=== PATIENT | female | born 1970 | race Caucasian/White ===

== ENCOUNTER 2017-07-07 01:56 | Observation (INO) ==
[2017-07-07 02:39] LABS: Basophils # 0.1 K/mcL (0.0-0.2); Basophils % 0.8 %; Eosinophils # 0.4 K/mcL (0.0-0.6); Hematocrit 40.3 % (35.3-44.9); Hemoglobin 12.4 g/dL (11.5-15.4); Immature Granulocytes % 0.6 % (0-4); Lymphocytes # 3.2 K/mcL (0.6-4.6); Lymphocytes % 35.6 %; Mean Corpuscular HGB Conc 30.8 g/dL (31.6-35.5); Mean Corpuscular Volume 81.3 fL (83.0-100.0); Mean Platelet Volume 10.1 fL (9.4-12.4); Monocytes # 0.5 K/mcL (0.0-1.3); Monocytes % 5.9 %; Neutrophils # 4.7 K/mcL (1.6-8.9); Platelet Count 185 K/mcL (140-400); Red Blood Count 4.96 M/mcL (3.82-4.97); Red Cell Distribution Width 14.5 % (11.5-14.5); Segmented Neutrophils % 53.1 %
[2017-07-07 02:40] LABS: Bilirubin,Urine Negative (Negative); Blood,Urine Negative (Negative); Clarity,Urine Cloudy (Clear); Color,Urine Yellow (Yellow); Glucose,Urine (UA) Normal (Normal); Ketones,Urine Negative (Negative); Leukocyte Esterase,Urine Moderate (Negative); Nitrite,Urine Negative (Negative); Protein,Urine Trace mg/dL (Neg-Trace); Specific Gravity,Urine 1.025 (1.010-1.025); Urobilinogen,Urine Normal (Normal)
[2017-07-07 02:43] LABS: Bacteria,Urine Few per hpf (None-Few); Hyaline Casts,Urine None Seen per lpf (None-Few)
[2017-07-07 02:44] LABS: INR 1.1; Prothrombin Time 11.3 Seconds (9.4-12.1)
[2017-07-07 02:45] LABS: Amphetamine Screen,Urine Negative ng/mL (Cutoff=1000); Barbiturate Screen,Urine Negative ng/mL (Cutoff=200); Benzodiazepines Screen,Urine Negative ng/mL (Cutoff=200); Cannabinoid Screen,Urine Negative ng/mL (Cutoff = 50); Cocaine Screen,Urine Negative ng/mL (Cutoff= 300); Opiate Screen,Urine Negative ng/mL (Cutoff=300); Phencyclidine Screen,Urine Negative ng/mL (Cutoff=25)
[2017-07-07 02:47] LABS: Activated Partial Thrombo Time 30.4 Seconds (26.0-36.0)
[2017-07-07] MEDS ORDERED: Aspirin 81 MG TAB.CHEW PO ONE (02:52)
--- NOTE | 2017-07-07 02:52 | Emergency Department Note ---
Disposition Clinical Impression: Chest pain Qualifiers: Chest pain type: unspecified Qualified Code(s): R07.9 - Chest pain, unspecified Disposition: Admitted As Inpatient General Adult HPI - General Chief complaint: ED Chest Pain Stated complaint: chest pain, high bp Time Seen by Provider: 07/07/17 02:14 Source: patient Mode of arrival: ambulatory Limitations: no limitations Nursing Notes Reviewed: Yes Vital Signs Reviewed: Yes - History of Present Illness HPI Narrative: 46-year-old patient with a significant history of hypertension reports to the emergency room with chest pain that has been going on all day since she classifies as an ache that has been intermittent and is unrelieved with antacids. The chest pain initiated yesterday afternoon, was intermittent and she does sound as part of her acid reflux and was taking antacids however around 8:30 last night patient had taken her medicine and was going up the stairs for bed and she felt like her heart was pounding, so she checked her blood pressures and I have over while the blood pressures were 159/99 176/106 and 194/-. A little bit later she had a very strong headache and she felt her heart stop to flip flop, she became concerned so she came to the emergency room. She has a large familial history of sudden MIs before the age of 50, and she actually has an appointment with [facility] electrophysiology next week due to the large familial history Onset (ago): hour(s) Location: chest Radiation: non-radiation Pain Scale: 0 Consistency: constant, intermittent Improves with: nothing Worsens with: nothing Associated symptoms: Reports: chest pain. Denies: confusion, cough, diaphoresis , fever/chills, headaches, loss of appetite, nausea/vomiting, rash, seizure, shortness of breath, syncope, weakness, other - Related Data Home Medications Medication Instructions Recorded Confirmed Albuterol Sulfate [Proair Hfa] 2 puff IH PRN PRN 07/07/17 07/07/17 Amitriptyline [Elavil] 50 mg PO DAILY 07/07/17 07/07/17 Budesonide [Pulmicort Flexhaler 1 puff IH PRN PRN 07/07/17 07/07/17 90mcg] Buspirone HCl [Buspar] 5 mg PO TID 07/07/17 07/07/17 Dicyclomine [Bentyl] 20 mg PO PRN PRN 07/07/17 07/07/17 Doxycycline Hyclate [Morgidox] 100 mg PO DAILY 07/07/17 07/07/17 Famotidine [Heartburn Prevention] 20 mg PO DAILY 07/07/17 Lisinopril [Zestril] 20 mg PO DAILY 07/07/17 07/07/17 Meloxicam 15 mg PO DAILY 07/07/17 07/07/17 Metoprolol Tartrate [Lopressor] 75 mg PO BID 07/07/17 07/07/17 Omeprazole [PriLOSEC] 40 mg PO DAILY 07/07/17 07/07/17 Pentosan Polysulfate Sodium 100 mg PO BID 07/07/17 07/07/17 [Elmiron] Tizanidine HCl [Zanaflex] 4 mg PO PRN PRN 07/07/17 07/07/17 Trospium Chloride 20 mg PO BID 07/07/17 07/07/17 Allergies Allergy/AdvReac Type Severity Reaction Status Date / Time adhesive Allergy Rash Verified 09/23/16 15:03 Sulfa (Sulfonamide Allergy Hives Verified 09/23/16 15:03 Antibiotics) All systems ED: reviewed and negative except as stated. Review of Systems: As Per HPI Constitutional: Reports: as per HPI. Denies: fever, chills Cardiovascular: Reports: as per HPI, chest pain, palpitations, dyspnea on exertion, edema, paroxysmal nocturnal dyspnea. Denies: syncope Respiratory: Reports: as per HPI. Denies: cough, dyspnea, wheezes, hemoptysis Gastrointestinal: Denies: abdominal pain, nausea, vomiting, diarrhea Musculoskeletal: Denies: back pain, neck pain Neurological: Denies: headache, weakness, numbness, paresthesias Past Medical History - Past Medical History Medical history: Reports: asthma, GERD, migraine, renal disease, other Psychiatric history: Reports: anxiety, depression - Social History Smoking Status: Never smoker Smokeless Tobacco Status: No Alcohol use: Reports: none Drug use: Reports: none Physical Exam - General Limitations: no limitations General appearance: alert - Head Head exam: atraumatic, normocephalic, normal inspection - Eye Eye exam: Present: normal appearance, PERRL, EOMI - ENT ENT exam: normal exam, normal oropharynx, mucous membranes moist - Neck Neck exam: Present: normal inspection, full ROM, trachea midline - Chest Chest inspection: Present: normal inspection, symmetric chest wall rise - Respiratory Respiratory exam: Present: normal lung sounds bilaterally - Cardiovascular Cardiovascular exam: Present: regular rate, normal rhythm, normal heart sounds - Abdominal Exam Abdominal exam: Present: soft, Non-Tender, normal bowel sounds. Absent: tenderness, distention, guarding, rebound, rigidity - Extremities Exam Extremities exam: Present: normal inspection, full ROM. Absent: tenderness, pedal edema - Expanded Lower Extremity Exam Gait: observed and normal - Back Exam Back exam: Present: normal inspection, full ROM. Absent: tenderness, CVA tenderness (R), CVA tenderness (L) - Neurological Exam Neurological exam: Present: alert, oriented X3, normal gait - Psychiatric Psychiatric exam: Present: normal affect, normal mood - Skin Skin exam: Present: warm, dry, intact, normal color Course Course Narrative: 46-year-old patient with a significant history of hypertension reports to the emergency room with chest pain that has been going on all day since she classifies as an ache that has been intermittent and is unrelieved with antacids. The chest pain initiated yesterday afternoon, was intermittent and she does sound as part of her acid reflux and was taking antacids however around 8:30 last night patient had taken her medicine and was going up the stairs for bed and she felt like her heart was pounding, so she checked her blood pressures and I have over while the blood pressures were 159/99 176/106 and 194/-. A little bit later she had a very strong headache and she felt her heart stop to flip flop, she became concerned so she came to the emergency room. She has a large familial history of sudden MIs before the age of 50, and she actually has an appointment with [facility] electrophysiology next week due to the large familial history Patient sitting in room in no acute distress. Exam is benign with the exception of elevated blood pressure. EKG showed sinus rhythm without ST elevation or significant ST depression., EKG was signed off by attending Dr. Hall. We will start the chest pain workup for rule out of ACS given patient' s familial history, personal history of hypertension, and symptomology. - Reevaluation(s) Reevaluation #1: Labs returned with urine showing a UTI, and a troponin of 0.05. At this point it would be prudent to go ahead and admit the patient for an ACS rule out. Hospitalist paged a return call except patient to the medical floor. Patient is agreeable with the plan. She has remained stable and very pleasant. Her blood pressures have remained elevated however she is not in hypertensive emergency at this time there is no in organ damage. Spoke with the hospitalist fevers drop in her blood pressure to fast creating more illness they will it could potentially help her. We will admit to Hospital services for ACS rule out. Time: 03:15 Vital Signs Temperature 98.7 F 07/07/17 01:59 Pulse Rate 91 07/07/17 01:59 Respiratory Rate 19 07/07/17 01:59 Blood Pressure 182/133 07/07/17 01:59 O2 Sat by Pulse Oximetry 98 07/07/17 01:59 Temperature 97.9 F 07/07/17 04:30 Pulse Rate 95 07/07/17 04:30 Respiratory Rate 16 07/07/17 04:30 Blood Pressure 153/93 07/07/17 04:30 O2 Sat by Pulse Oximetry 96 07/07/17 04:30 Oxygen Delivery Oxygen Delivery Room Air Medical Decision Making - Medical Records Medical records reviewed: Yes I reviewed the patient's medical records. - Lab Data Lab results reviewed: Yes I reviewed the patient's lab results. Result diagrams: 07/07/17 02:25 07/07/17 02:25 Lab Results 07/07/17 07/07/17 07/07/17 Range/Units 02:25 02:25 02:25 WBC 8.9 (4.3-11.1) K/mcL RBC 4.96 (3.82-4.97) M/mcL Hgb 12.4 (11.5-15.4) g/dL Hct 40.3 (35.3-44.9) % MCV 81.3 L (83.0-100.0) fL MCH 25.0 L (28.0-33.3) pg MCHC 30.8 L (31.6-35.5) g/dL RDW 14.5 (11.5-14.5) % Plt Count 185 (140-400) K/mcL MPV 10.1 (9.4-12.4) fL Immature Gran % 0.6 (0-4) % Seg Neutrophils % 53.1 % Lymphocytes % 35.6 % Monocytes % 5.9 % Eosinophils % 4.0 % Basophils % 0.8 % Neutrophils # 4.7 (1.6-8.9) K/mcL Lymphocytes # 3.2 (0.6-4.6) K/mcL Monocytes # 0.5 (0.0-1.3) K/mcL Eosinophils # 0.4 (0.0-0.6) K/mcL Basophils # 0.1 (0.0-0.2) K/mcL PT 11.3 (9.4-12.1) Seconds INR 1.1 APTT 30.4 (26.0-36.0) Seconds Sodium (136-145) mEq/L Potassium (3.5-5.1) mEq/L Chloride (98-107) mEq/L Carbon Dioxide (23-29) mEq/L BUN (6-20) mg/dL Creatinine (0.60-1.20) mg/dL Est GFR ( Amer) (> 60) Est GFR (Non-Af Amer) (> 60) BUN/Creatinine Ratio (6-26) Glucose (70-105) mg/dL Calculated Osmolality (280-300) Calcium (8.6-10.3) mg/dL Troponin I (< 0.04) ng/mL Lipase (11-82) Units/L Urine Color (Yellow) Urine Clarity (Clear) Urine pH (5.0-8.0) pH Units Ur Specific [place] (1.010-1.025) Urine Protein (Neg-Trace) mg/dL Urine Glucose (UA) (Normal) mg/dL Urine Ketones (Negative) mg/dL Urine Blood (Negative) Urine Nitrite (Negative) Urine Bilirubin (Negative) Urine Urobilinogen (Normal) mg/dL Ur Leukocyte Esterase (Negative) Urine Microscopic RBC (0-3) per hpf Urine Microscopic WBC (0-3) per hpf Ur Squamous Epith Cells (None-Few) per lpf Urine Bacteria (None-Few) per hpf Hyaline Casts (None-Few) per lpf Ur Culture Indicated? (NO) Urine Opiates Screen Negative (Ijxsns=735) ng/mL Ur Barbiturates Screen Negative (Zonkhs=972) ng/mL Ur Phencyclidine Scrn Negative (Cutoff=25) ng/mL Ur Amphetamines Screen Negative (Qtclbt=5360) ng/mL U Benzodiazepines Scrn Negative (Eyzjdc=696) ng/mL Urine Cocaine Screen Negative (Cutoff= 300) ng/mL U Marijuana (THC) Screen Negative (Cutoff = 50) ng/mL 07/07/17 07/07/17 07/07/17 Range/Units 02:25 02:25 02:31 WBC (4.3-11.1) K/mcL RBC (3.82-4.97) M/mcL Hgb (11.5-15.4) g/dL Hct (35.3-44.9) % MCV (83.0-100.0) fL MCH (28.0-33.3) pg MCHC (31.6-35.5) g/dL RDW (11.5-14.5) % Plt Count (140-400) K/mcL MPV (9.4-12.4) fL Immature Gran % (0-4) % Seg Neutrophils % % Lymphocytes % % Monocytes % % Eosinophils % % Basophils % % Neutrophils # (1.6-8.9) K/mcL Lymphocytes # (0.6-4.6) K/mcL Monocytes # (0.0-1.3) K/mcL Eosinophils # (0.0-0.6) K/mcL Basophils # (0.0-0.2) K/mcL PT (9.4-12.1) Seconds INR APTT (26.0-36.0) Seconds Sodium 140 (136-145) mEq/L Potassium 3.7 (3.5-5.1) mEq/L Chloride 108 H (98-107) mEq/L Carbon Dioxide 25 (23-29) mEq/L BUN 18 (6-20) mg/dL Creatinine 0.73 (0.60-1.20) mg/dL Est GFR ( Amer) > 60 (> 60) Est GFR (Non-Af Amer) > 60 (> 60) BUN/Creatinine Ratio 25 (6-26) Glucose 129 H (70-105) mg/dL Calculated Osmolality 294 (280-300) Calcium 9.5 (8.6-10.3) mg/dL Troponin I 0.05 H* (< 0.04) ng/mL Lipase 22 (11-82) Units/L Urine Color Yellow (Yellow) Urine Clarity Cloudy A (Clear) Urine pH 6.0 (5.0-8.0) pH Units Ur Specific [place] 1.025 (1.010-1.025) Urine Protein Trace (Neg-Trace) mg/dL Urine Glucose (UA) Normal (Normal) mg/dL Urine Ketones Negative (Negative) mg/dL Urine Blood Negative (Negative) Urine Nitrite Negative (Negative) Urine Bilirubin Negative (Negative) Urine Urobilinogen Normal (Normal) mg/dL Ur Leukocyte Esterase Moderate H (Negative) Urine Microscopic RBC 0-3 (0-3) per hpf Urine Microscopic WBC 50-100 H (0-3) per hpf Ur Squamous Epith Cells Moderate H (None-Few) per lpf Urine Bacteria Few (None-Few) per hpf Hyaline Casts None Seen (None-Few) per lpf Ur Culture Indicated? YES A (NO) Urine Opiates Screen (Fdqjno=096) ng/mL Ur Barbiturates Screen (Fjeypu=705) ng/mL Ur Phencyclidine Scrn (Cutoff=25) ng/mL Ur Amphetamines Screen (Hawisx=3093) ng/mL U Benzodiazepines Scrn (Uvbhxl=276) ng/mL Urine Cocaine Screen (Cutoff= 300) ng/mL U Marijuana (THC) Screen (Cutoff = 50) ng/mL - Radiology Data Radiology results reviewed: Yes I reviewed the patient's radiology results. Attestation Statement - Attestation Attestation: I, Josiah Hall DO have provided [id number] time during the care of this patient. Detailed review the presentation, symptoms, medical history were discussed and reviewed with the mid-level provider Stacey Starks PA-C/HUMIDIFIER OPERATOR. Medical intervention labs and imaging studies were reviewed in detail. See full documentation of physical exam and course of care in the mid-level provider 's note. I agree with the determined course of care, medical intervention and disposition put forth by the mid-level provider. See below documentation for changes or alterations in documentation. 46-year-old female presents emergency room with intermittent chest discomfort and pain over the last several weeks. Patient has no specific cardiac history but has had several family members at a young age secondary to cardiac disease. Patient denies any symptoms at this time. Aspirin was given. Patient took a full 325 mg of aspirin. Currently she is denying chest pain shortness of breath headache vision changes nausea vomiting or diarrhea. Patient denies any fevers or chills, infection, recent illness. Denies any trauma or injury. Physical exam she is resting comfortably in bed. Lungs are clear heart is regular abdomen is soft. She does not have any acute neurologic deficits or issues at this point. She is able to distress. Patient had screening evaluation CBC chemistry and troponin here in the emergency room. Her troponin was slightly elevated at 0.05. Chest x-ray is stable. Patient was recommended for admission secondary to risk factors including hypertension, hyperlipidemia, diabetes. Patient also had elevated troponin. Clinically she does not require any further intervention at this point considering she has stable vital signs and no pain. Hospitalist will admit for definitive management. See detailed documentation of the physical exam, medical intervention, medical decision-making and disposition in the mid-level provider' s note. No critical care provider this patient's treatment course 0400 Patient is stable here in emergency room. Hospitalist was down to the emergency room to evaluate her. No clinical changes at this time. Admission process will be completed at this point for definitive management.
[2017-07-07 02:54] LABS: BUN/Creatinine Ratio 25 (6-26); Blood Urea Nitrogen 18 mg/dL (6-20); Calcium 9.5 mg/dL (8.6-10.3); Carbon Dioxide 25 mEq/L (23-29); Chloride 108 mEq/L (98-107); Glucose 129 mg/dL (70-105); Lipase 22 Units/L (11-82); Osmolality,Calculated 294 (280-300); Potassium 3.7 mEq/L (3.5-5.1); Sodium 140 mEq/L (136-145); eGFR For African Americans > 60 (> 60); eGFR For Non-African Americans > 60 (> 60)
[2017-07-07 02:57] LABS: RBC,Urine 0-3 per hpf (0-3); Squamous Epithelial Cell,Urine Moderate per lpf (None-Few); WBC,Urine 50-100 per hpf (0-3)
[2017-07-07] MEDS ORDERED: *HR* Enoxaparin 100 MG/ML SYRINGE SQ STA (04:55)
[2017-07-07] MEDS ORDERED: traMADol 50 MG TABLET PO PRN (04:55)
[2017-07-07] MEDS ORDERED: *HR* OxyCODONE Immed Rel 5 MG TABLET PO PRN (04:55)
[2017-07-07] MEDS ORDERED: Acetaminophen 325 MG TABLET PO PRN (04:55)
[2017-07-07] MEDS ORDERED: Naloxone 0.4 MG/ML INJ IVP PRN (04:55)
--- NOTE | 2017-07-07 05:32 | Internal Med History&Physical ---
Date of Encounter: 07/07/17 Time of Encounter: 05:00 Assessment and Plan (1) Chest pain Current visit: Yes Status: Acute 1. Will cycle troponins, EKG's, and order ECHO. 2. Will place on PPI given her GERD symptoms. 3. Consult cardiology given her + troponins, recent negative stress test in September , and likely need for further cardiac work-up. Qualifiers: Chest pain type: precordial pain Qualified Code(s): R07.2 - Precordial pain (2) Elevated troponin I level Current visit: Yes Status: Acute 1. Patient currently chest pain free. 2. She received ASA in ER. 3. I will order a one time dose of Lovenonx at 1 mg/kg this morning. 4. Cycle troponins and EKG's. 5. Consult cardiology. 6. She may need further Lovenox or heparin drip pending repeat troponins. (3) GERD (gastroesophageal reflux disease) Current visit: Yes Status: Acute 1. Will place on BID PPI. 2. She may need EGD as outpatient once cardiac status evaluated. Qualifiers: Esophagitis presence: without esophagitis Qualified Code(s): K21.9 - Gastro -esophageal reflux disease without esophagitis (4) DVT prophylaxis Current visit: Yes Status: Acute 1. Lovenox at 1 mg/kg x one dose this morning. Further dosing pending cardiac work-up. 2. She may need continued anti-coagulation versus DVT prophylaxis. Internal Medicine - H&P: HPI Chief complaint: chest pain Admitted From: Emergency Dept Plans for Post Hospital Care: Home History of present illness: Ms. White is a 46 year old female who presents with sudden onset of chest pain , pressure, shortness breath, and diaphoresis overnight. Her symptoms awoke her from sleep tonight, and she therefore presented to the ER for further workup and care. She did have periods of chest pain off and on yesterday most of day, which she attributed to acid reflux. She took several antacids over-the -counter without relief. She therefore went to bed, hoping her symptoms would go away. However, she awoke with chest pain which was much worse than earlier in the day. She therefore came to the ER. Workup in the ER was negative except for positive troponin of 0.05. She was therefore admitted to the hospitalist service. Upon my assessment of the patient, she is currently chest pain-free. She explains that she has a strong family history of sudden due to cardiac dysrhythmias. She is due to see an farm crops teacher at [facility] next week in consultation and will likely have elective physiologic study in the near future. Patient did have a stress echocardiogram here at [place] less than a year ago which was negative. Past Med Surg Social Fam HX - Past Medical History Attestation: Yes The following information was validated with the patient. Source: patient, old records reviewed Medical history: asthma, GERD, migraine, renal disease Psychiatric history: anxiety, depression - Past Surgical History Surgical History: , MACK/BSO - Social History Smoking Status: Never smoker Smokeless Tobacco Status: No Alcohol use: none Drug use: none Current living situation: Home, With Family Activity Level: Independent ambulation Recent Out of Country Travel Within the Last 8 Weeks: No - Family History Mother Hx Family Cardiac Disorders: Yes (Pacemaker) Hx Family Cancer: Yes (Liver) Father Living Status: Cause of : Pancreatic cancer Hx Family Cardiac Disorders: Yes (HTN) Hx Family Cancer: Yes (Pancreatic) Sister Hx Family Cardiac Disorders: Yes (heart failure) Internal Medicine - H&P: Meds Albuterol Sulfate [Proair Hfa] 2 puff IH PRN PRN 07/07/17 [History] Amitriptyline [Elavil] 50 mg PO DAILY 07/07/17 [History] Budesonide [Pulmicort Flexhaler 90mcg] 1 puff IH PRN PRN 07/07/17 [History] Buspirone HCl [Buspar] 5 mg PO TID 07/07/17 [History] Dicyclomine [Bentyl] 20 mg PO PRN PRN 07/07/17 [History] Doxycycline Hyclate [Morgidox] 100 mg PO DAILY 07/07/17 [History] Famotidine [Heartburn Prevention] 20 mg PO DAILY 07/07/17 [History] Lisinopril [Zestril] 20 mg PO DAILY 07/07/17 [History] Meloxicam 15 mg PO DAILY 07/07/17 [History] Metoprolol Tartrate [Lopressor] 75 mg PO BID 07/07/17 [History] Omeprazole [PriLOSEC] 40 mg PO DAILY 07/07/17 [History] Pentosan Polysulfate Sodium [Elmiron] 100 mg PO BID 07/07/17 [History] Tizanidine HCl [Zanaflex] 4 mg PO PRN PRN 07/07/17 [History] Trospium Chloride 20 mg PO BID 07/07/17 [History] 3 Allergy/AdvReac Type Severity Reaction Status Date / Time adhesive Allergy Rash Verified 09/23/16 15:03 Sulfa (Sulfonamide Allergy Hives Verified 09/23/16 15:03 Antibiotics) - Constitutional Constitutional: no chills, no fever(s), no night sweats - EENT Eyes: no blurry vision, no change in vision Ears: no ear pain, no tinnitus Nose, mouth and throat: no nasal congestion, no nasal discharge, no sinus pressure, no sore throat - Cardiovascular Cardiovascular ROS IM: chest pain, diaphoresis, dyspnea, dyspnea on exertion, palpitations, no edema, no lightheadedness, no paroxysmal nocturnal dyspnea, no syncope - Respiratory Respiratory: no cough, no hemoptysis, no chest congestion, no excessive phlegm production, no change in phlegm color - Gastrointestinal Gastrointestinal: dyspepsia, heartburn, no abdominal pain, no diarrhea, no hematemesis, no hematochezia, no melena, no nausea, no vomiting - Genitourinary Genitourinary: no dysuria, no flank pain, no hematuria - Musculoskeletal Musculoskeletal ROS IM: no arthralgias, no back pain, no limited range of motion - Integumentary Integumentary IM: no rash, no jaundice - Neurological Neurological ROS: headache(s) (migraine), no disequilibrium, no dizziness, no focal weakness, no frequent falls - Psychiatric Psychiatric: no anxiety, no depression - Endocrine Endocrine IM: no polydipsia, no polyuria - Hematologic/Lymphatic Hematologic/Lymphatic: no easy bruising, no lymphadenopathy - Allergic/Immunologic Allergic/Immunologic: no wheezing, no GI upset with certain foods - Constitutional Vitals: Temp Pulse Resp BP Pulse Ox 97.9 F 95 16 153/93 96 07/07/17 04:30 07/07/17 04:30 07/07/17 04:30 07/07/17 04:30 07/07/17 04:30 General appearance: Present: cooperative, A&O X 3, pleasant, no acute distress - Head Head exam: Absent: atraumatic, normal inspection - Eye Eye exam: Present: EOMI, PERRL. Absent: scleral icterus Pupils: Present: normal accommodation - ENT ENT exam: Present: mucous membranes dry, normal exam, normal oropharynx - Neck Neck exam general surgery: Present: full ROM, supple. Absent: lymphadenopathy, tenderness, nuchal rigidity - Respiratory Respiratory exam: Present: CTAB. Absent: chest wall tenderness, rales, respiratory distress, rhonchi, wheezes - Cardiovascular Cardiovascular exam: Present: distant heart sounds, RRR, +S1, +S2. Absent: diastolic murmur, systolic murmur - GI/Abdominal GI/Abdominal exam: Present: soft. Absent: hernia, hepatomegaly, mass, splenomegaly - Extremities Exam Extremities exam: Present: full ROM, normal capillary refill, warm, radial pulses palpable and symmetrical. Absent: calf tenderness, joint swelling, pedal edema, tenderness - Back Exam Back exam: Absent: CVA tenderness (L), CVA tenderness (R) - Neurological Exam Neurological exam: Present: alert, CN II-XII intact, oriented X3, no focal deficits, strengths equal and symetr throughout - Psychiatric Psychiatric exam: Present: normal affect, normal mood - Skin Skin exam: Present: dry, warm. Absent: rash Internal Med - H&P Results - Labs CBC & Chem 7: 07/07/17 02:25 07/07/17 02:25 - EKG Data -: EKG Interpreted by Myself - EKG Data Prior EKG available for review: no EKG comments: 07/07/17 05:39 NSR; LAD; ? LAE - Diagnostic Studies Chest x-ray Status: image reviewed by me (negative)
[2017-07-07] MEDS: Pantoprazole 40 MG VIAL IVP SCH ×2 (05:36→18:24)
--- NOTE | 2017-07-07 09:30 | Cardiology Consult Note ---
<Carl Lane - Last Filed: 07/07/17 09:17> Date of Encounter: 07/07/17 Time of Encounter: 09:17 Assessment and Plan (1) Chest pain Current Visit: Yes Status: Acute C/o typical and atypical chest pain symptoms. EKG shows Sr with no ST changes. Troponin mildly elevated at 0.05, 0.04 likely demand ischemia from elevated b/p 180/100. Stress echo 06/2016 was negative. EF 60-65%. Chest pain may be related to uncontrolled b/p. Continues to have pain on my exam and b/p is improved. Cardiac risk factors. include HTN, HLD, and borderline DM. Also reports family history with multiple uncles in their 50"s. I discussed possible LHC vs continuing medical management. I will discuss further with Dr. Miner. Qualifiers: Chest pain type: precordial pain Qualified Code(s): R07.2 - Precordial pain (2) Elevated troponin I level Current Visit: Yes Status: Acute Troponin 0.05, 0.04, likely demand ischemia in the setting of uncontrolled hypertension. (3) Hypertension Current Visit: Yes Status: Acute B/p difficult to control at home per patient. Labile b/p. Reports dietary indescretions.Low sodium diet discussed. Restart home meds and adjust as needed. Qualifiers: Hypertension type: essential hypertension Qualified Code(s): I10 - Essential (primary) hypertension Discussion w patient/family: The assessment and plan as outlined above was discussed with the patient and/or family members who expressed understanding and agreement. All questions were answered. Thank you for involving us in the care of your patient. Please call with any questions. History of Present Illness Consult date: 07/07/17 Requesting physician: Ashkan Latham Consult reason: Chest pain Chief complaint: Chest pain, elevated blood pressures History of present illness: Ms. White is a 46 year old female with a past medical history of uncontrolled hypertension, HLD, borderline DM, fibromyalgia, and medullary sponge kidney. She presents with intermittent midsternal chest ache and dizziness. She c/o elevated blood pressure. She has been struggling with controlling her blood pressure and chest discomfort for over a year now. Last night her chest pain would not go away with rest or multiple antacids. She also c/o intermittent chest pain with exertion. Cardiology consulted d/t elevated troponin and prior stress test completed in the past year. Past Med Surg Social Fam HX - Past Medical History Medical history: asthma, GERD, hyperlipidemia, hypertension, migraine, renal disease Psychiatric history: anxiety, depression - Past Surgical History Surgical History: , MACK/BSO - Social History Smoking Status: Never smoker Smokeless Tobacco Status: No Alcohol use: none Drug use: none - Family History Mother Hx Family Cardiac Disorders: Yes (Pacemaker) Hx Family Cancer: Yes (Liver) Father Living Status: Cause of : Pancreatic cancer Hx Family Cardiac Disorders: Yes (HTN) Hx Family Cancer: Yes (Pancreatic) Sister Hx Family Cardiac Disorders: Yes (heart failure) Medications and Allergies Albuterol Sulfate [Proair Hfa] 2 puff IH PRN PRN 07/07/17 [History] Amitriptyline [Elavil] 50 mg PO DAILY 07/07/17 [History] Budesonide [Pulmicort Flexhaler 90mcg] 1 puff IH PRN PRN 07/07/17 [History] Buspirone HCl [Buspar] 5 mg PO TID 07/07/17 [History] Dicyclomine [Bentyl] 20 mg PO PRN PRN 07/07/17 [History] Famotidine [Heartburn Prevention] 20 mg PO DAILY 07/07/17 [History] Lisinopril [Zestril] 20 mg PO DAILY 07/07/17 [History] Meloxicam 15 mg PO DAILY 07/07/17 [History] Metoprolol Tartrate [Lopressor] 75 mg PO BID 07/07/17 [History] Omeprazole [PriLOSEC] 40 mg PO DAILY 07/07/17 [History] Pentosan Polysulfate Sodium [Elmiron] 100 mg PO BID 07/07/17 [History] Tizanidine HCl [Zanaflex] 4 mg PO PRN PRN 07/07/17 [History] Trospium Chloride 20 mg PO BID 07/07/17 [History] 3 Allergy/AdvReac Type Severity Reaction Status Date / Time adhesive Allergy Rash Verified 09/23/16 15:03 Sulfa (Sulfonamide Allergy Hives Verified 09/23/16 15:03 Antibiotics) All Systems Review: The remainder of the systems were reviewed and are negative Physical Examination Vital Signs, Last 4 Hours Temp Pulse Resp BP Pulse Ox 07/07/17 06:42 98.6 F 91 16 106/71 92 General: Conversant, No Apparent Distress HEENT: Atraumatic, Normocephaly, Mucus Membranes Moist Neck: No JVD, Normal carotid pulses Cardiac: Reg Rate and Rhythm, Normal S1 and S2, No Murmur Lungs: Normal Breath Sounds, No Wheeze, Rales, Rhonchi Neuro: Alert and responsive, No focal deficits noted Abdomen: Soft, Non-Tender Skin: No rashes noted on visualized skin Musculoskeletal: No Chest Wall Tenderness Extremities: No Clubbing, No Cyanosis, No Edema, Normal Pulses Results 07/07/17 02:25 07/07/17 02:25 Lab Results 07/07/17 07:49 Troponin I 0.04 H* - Imaging and Cardiology Echo: report reviewed - EKG Interpretation EKG results cardiology: personally reviewed Consult Discharge Plan - Plan Referrals: Barb Mccurdy MD [Primary Care Provider] - <Linda Miner - Last Filed: 07/07/17 13:20> Date of Encounter: 07/07/17 - Attending Attestation I examined this patient and my medical decision-making was reviewed with the LEAD GENERATION REPRESENTATIVE. I agree with the documented findings, disposition and treatment plan as described. Ms. White presents with ongoing symptoms of chest discomfort. Troponin mildly elevated on admission possibly secondary to elevated blood pressures. No ECG changes. Cardiac risk factors include postmenopausal status, borderline DM, HTN and family history. Patient already had a stress test in September 2016 for similar symptoms, although more prominent now. Given risk factors, troponins and ongoing symptoms despite a normal stress test, we gave the patient the option of proceeding with [facility]. The R/B/A of the procedure were discussed with the patient - at bedside. The patient expressed understanding of the risks of the procedure. Patient decided to proceed. She denies history of bleeding events and has no upcoming elective procedures Renal function is normal. Assessment and Plan Discussion w patient/family: The assessment and plan as outlined above was discussed with the patient and/or family members who expressed understanding and agreement. All questions were answered. Thank you for involving us in the care of your patient. Please call with any questions. History of Present Illness History of present illness: Ms. White is a 46 year old female All Systems Review: The remainder of the systems were reviewed and are negative Physical Examination Vital Signs, Last 4 Hours Temp Pulse Resp BP Pulse Ox 07/07/17 11:23 16 95 07/07/17 11:12 98.7 F 97 15 123/85 94 Results 07/07/17 02:25 07/07/17 02:25 Lab Results 07/07/17 07:49 Troponin I 0.04 H*
[2017-07-07] MEDS ORDERED: tiZANidine 4 MG TABLET PO PRN (10:42)
--- NOTE | 2017-07-07 10:46 | Event Note ---
Date of Encounter: 07/07/17 Time of Encounter: 10:36 Seen at bedside. Denies chest pain at this time however she states the chest pain comes and goes. She is aware possible LHC later this evening. 1. Chest pain Presented with chest pain. Serial troponin 0.05, 0.04. EKG without acute ST changes. Received one-time therapeutic dose Lovenox on arrival. TTE 06/2016 with EF 60%, no wall motion abnormalities. No known history of CAD. Evaluated by cardiology who suspects elevated troponin possibly secondary to demand ischemia from elevated BP. Cardiac risk factors include hypertension, hyperlipidemia and family history. Possible LHC this evening versus medical management. Further recommendations pending from cardiology. Cont ASA 2. GERD (gastroesophageal reflux disease) per hx. Had normal C-scope 04/2016. Cont PPI. Follow-up with GI outpatient 3. Hypertension: per hx. BP elevated on arrival. Possibly secondary to chest pain. BP improved without resuming home medication. Resume home VANESSA and BB with hold parameters. Monitor BP and titrate PRN 4. DVT prophylaxis: SCDs. Consider neurological prophylaxis once determination is made on LHC.
[2017-07-07] MEDS: Beclomethasone 80mcg MDI IH SCH ×2 (11:19→21:53)
[2017-07-07] MEDS ORDERED: *HR* Heparin 10,000 UNIT/10 ML VIAL ONE (14:44)
[2017-07-07] MEDS ORDERED: Heparin 1,000 UNITS/500 mL 500 ML ONE (14:44)
[2017-07-07] MEDS ORDERED: ISOVUE-370 200 ML INFUS..BTL IV ONE (14:45)
[2017-07-07] MEDS ORDERED: 0.9 % Sodium Chloride 1,000 ML ONE ×2 (14:45→15:04)
--- NOTE | 2017-07-07 15:16 | Electrocardiograph Report ---
[place] [address] Test Date: 2017-07-07 Pat Name: Lorena White Department: 104 Room: 3B41 Gender: F [place] Block Setter: MICHAEL : 1970 Requested By: Sonal Starks Order Number: [id number] Reading MD: Linda Mienr Measurements Intervals Anderson Rate: 92 P: 46 SC: 161 QRS: -11 QRSD: 77 T: 15 QT: 338 QTc: 388 Interpretive Statements SINUS RHYTHM POSSIBLE LEFT ATRIAL ENLARGEMENT LOW QRS VOLTAGE IN PRECORDIAL LEADS POSSIBLE LEFT VENTRICULAR HYPERTROPHY Electronically Signed On 07-07-2017 15:15:09 EST by Linda Miner
[2017-07-07] MEDS ORDERED: *HR* Midazolam HCl 2 MG/2 ML VIAL ONE ×2 (15:18→15:32)
[2017-07-07] MEDS ORDERED: Nitroglycerin 1,000 MCG/10 ML VIAL IV ONE (15:21)
--- NOTE | 2017-07-07 15:23 | Pre-Sedation Evaluation ---
Pre-sedation evaluation - Pre-sedation checklist Date of procedure: 07/07/17 Procedure: [facility] Recent Vitals: Last Vital Signs Temp 98.7 F 07/07/17 11:12 Pulse 97 07/07/17 11:12 Resp 16 07/07/17 11:23 BP 123/85 07/07/17 11:12 Pulse Ox 95 07/07/17 11:23 H&P (including ROS) documented in medical record: Yes Previous reaction to sedatives/anesthetics: No Dietary Status: NPO 6 hours prior to procedure Airway Assessment: Patient can open mouth completely, TMJ function normal Dentition: No loose teeth or bridges Possible difficult airway: No Plan of Care: Pt appropriate candidate for procedure/moderate/conscious sedation , Risks/benefits of procedure/sedation discussed w/ patient/family, If not NPO; Risk of intake outweiged by necessity to perform procedure
--- NOTE | 2017-07-07 16:00 | Invasive Diagnostic Lab Proc ---
Name: Lorena White Date of Study: 07/07/2017 Date: 1970 Ht: 61.8in Medical Record#: [id number] Age: 46 Wt: 209.88lb Gender: Female BSA: 1.95 Order #: [id number] BMI: 38.62 Physicians Procedure Physician: Ishmael Cavazos DO Referring MD: Barb Mccurdy MD Referring MD: Staff Name Position Time In Gary Adorno RT (R) Monitor 03:09 PM Francisco Peña RN Hospice Consultant 03:10 PM Sunshine Adorno RT (R) Scrub 03:10 PM Indications Indication Unstable Angina Procedures Performed Procedure L HRT ARTERY/VENTRICLE ANGIO Pre-Procedure Checklist Informed consent is complete signed and on chart. H&P is on chart. ID band is on and ID verified with patient. Patient NPO for procedure The procedure was described for the patient and questions were answered. Blood Pressure: 123/85 ECG is on chart. Rhythm: Sinus Tachycardia Plan of Care Patient will tolerate the procedure without complications. Adequate level of comfort will be maintained. Hemodynamics will remain stable Patient will recover from procedure without complications. Respiratory function will be maintained. Cardiac rhythm will remain stable. Patient temperature will be maintained. Patient and/or family have verbalized understanding of the procedure. Patient Education Intravenous Access Time IV Size Location DC'd Fluid/Drip Rate Units RN 03:09 PM 18g 1 1/" Patent On Arrival Lt Antecubital 0.9NaCl 25 ml/hr Francisco Peña RN Allergies adhesive SULFA Vital Signs Time BP (mmHg) HR (bpm) O2 Sat. RR (bpm) LOC 12:42 PM 123 / 85 97 94 % 15 5 = Fully awake and oriented or at pre-proc level 03:09 PM / % 5 = Fully awake and oriented or at pre-proc level 03:09 PM / % 5 = Fully awake and oriented or at pre-proc level 03:25 PM / % 4 = Oriented but drowsy 03:17 PM 166 / 114 111 98 % 03:22 PM 177 / 88 114 97 % 17 03:27 PM 156 / 104 106 98 % 03:32 PM 163 / 102 114 99 % 18 03:37 PM 144 / 93 112 98 % 30 03:42 PM 139 / 93 106 97 % 17 03:47 PM 151 / 97 81 97 % 23 Procedural Medications Time Medication Dose Units Method Given By 03:15 PM Oxygen 2 L/min nasal cannula Francisco Peña RN 03:20 PM Versed 2 mg Intravenous Francisco Peña RN 03:31 PM Lidocaine 2% 10 ml Subcutaneous Ishmael Cavazos DO 03:32 PM Versed 1 mg Intravenous Francisco Peña RN ASA Classification: CLASS III- Severe systemic disease (i.e. prior AMI, diabetes with vascular complications, morbid obesity) Mars Score Preprocedure Postprocedure Activity 2- Moves 4 extremities sustained head lift Activity 2- Moves 4 extremities sustained head lift Circulation 2- SBP +/= 20 points of pre-anesthetic level Circulation 2- SBP +/= 20 points of pre-anesthetic level Consciousness 2- Awake and alert oriented x 3 Consciousness 2- Awake and alert oriented x 3 O2 Saturation 2- Able to maintain O2 satruation of 92% on room air O2 Saturation 2- Able to maintain O2 satruation of 92% on room air Respiratory 2- Able to deep breathe and cough well Respiratory 2- Able to deep breathe and cough well Total Score 10 Total Score 10 Contrast Agent: Isovue Diagnostic Contrast: 70 ml Total Contrast: 70 ml Fluoro Dose: 134 mGy Procedure Log Time Note Enter By 03:08 PM CathStat 03:09 PM Pt arrived to builder's labourer 1 at 15:09 [email or web address] 03:09 PM Patient charges- Angio tray pack, Navilyst 3mm J, Pulse Oximetry and ACIST tubing and transducer [email or web address] 03:09 PM Time: 15:09 Patient comfortable and pain free: Yes [email or web address] 03:09 PM Time: 15:09LOC: 5 = Fully awake and oriented or at pre-proc level [email or web address] 03:10 PM Gary Adorno RT (R) Position: Monitor Time in: 15:09 [email or web address] 03:10 PM Francisco Peña RN Position: Hospice Consultant Time in: 15:10 [email or web address] 03:10 PM Sunshine Adorno RT (R) Position: Scrub Time in: 15:10 [email or web address] 03:10 PM Case Delayed No [email or web address] 03:10 PM Clinical Presentation: Unstable angina [email or web address] 03:14 PM Physician arrived 15:14 [email or web address] 03:14 PM Meet and greet completed [email or web address] 03:14 PM Sign in performed according to hospital policy. [email or web address] 03:14 PM Procedure start 15:14 [email or web address] 03:14 PM ASA Class CLASS III- Severe systemic disease (i.e. prior AMI, diabetes with vascular complications, morbid obesity) 03:15 PM Time: 15:15 Oxygen on at 2 L/min per nasal cannula by Francisco Peña RN 03:16 PM Vitals capture started with the following parameters, Patient=Adult, Interval=5 min, Initial Vmhdivug=249 mmHg, Deflation Rate=5 mmHg, Cuff placed on Right Arm 03:17 PM UD=005 bpm, DHNL=099/114 mmhg, SpO2=98.0 % 03:18 PM Recorded ECG: VE=665 Condition=Condition 1 03:19 PM Hair removed from procedure site in procedure lab using clippers. Bilateral groin prepped with Chloraprep by Gillian Savage RN, then patient was draped. Skin intact. 03:20 PM Time: 15:20 Versed 2 mg Intravenous Given by Francisco Peña RN 03:22 PM GC=205 bpm, PSLV=472/88 mmhg, SpO2=97.0 %, Resp=17 B/min 03:25 PM Time: 15:09LOC: 5 = Fully awake and oriented or at pre-proc level 03:25 PM Time: 15:09 Patient comfortable and pain free: Yes 03:27 PM YG=870 bpm, JTEQ=556/104 mmhg, SpO2=98.0 % 03:27 PM Pressure channel 2 zeroed. 03:31 PM Time out performed according to hospital policy 03:32 PM HC=639 bpm, GSGD=823/102 mmhg, SpO2=99.0 %, Resp=18 B/min 03:32 PM Time: 15:31 10 ml Lidocaine 2% to right groin Subcutaneous Given by Ishmael Cavazos DO 03:32 PM Time: 15:32 Versed 1 mg Intravenous Given by Francisco Peña RN 03:32 PM Micro-Introducer Kit utilized for sheath placement bw 03:34 PM Unsuccessful access attempt # 1 into the right Femoral artery. Manual pressure applied to achieve hemostasis.. bw 03:36 PM Unsuccessful access attempt # 2 into the right Femoral artery. Manual pressure applied to achieve hemostasis.. 03:37 PM 4fr micro sheath inserted [email or web address] 03:37 PM JM=477 bpm, ZXCL=456/93 mmhg, SpO2=98.0 %, Resp=30 B/min 03:37 PM Access obtained by percutaneous puncture. 6Fr 10cm Terumo Hawthorne sheath placed in right Femoral artery. [id number] [email or web address] 03:38 PM 0.035 145cm Navilyst 3mmJ wire [id number] [email or web address] 03:39 PM 6Fr FR 4 catheter inserted over the wire DN 03:39 PM Catheter selectively placed in left ventricle/ LV gram hand injected [email or web address] 03:39 PM Recorded Pressure: LV, HR=80, Condition=Condition 1 (Left Ventricle) LV 106/0/2 03:40 PM Recorded Pressure: LV, Ao, HR=98, Condition=Condition 1 (Left Ventricle) LV 150/0/2, (Aorta) Ao 148/100/120 03:40 PM Time: 15:25 Patient comfortable and pain free: Yes 2 03:40 PM Time: 15:25LOC: 4 = Oriented but drowsy [email or web address] 03:40 PM Coronary Dominance: right [email or web address] 03:41 PM Catheter removed 03:41 PM 6Fr FL 4 catheter inserted over the wire DN 03:42 PM Recorded Pressure: Ao, EK=584, Condition=Condition 1 (Aorta) Ao 125/92/107 03:42 PM OF=608 bpm, XMWE=823/93 mmhg, SpO2=97.0 %, Resp=17 B/min 03:42 PM LCA angiography performed in multiple views. [email or web address] 03:43 PM Bolus angiogram of right Femoral complete: hand injected 10cc [email or web address] 03:43 PM Catheter removed 03:45 PM Arterial sheath pulled, Angio-seal closure device used and was Successful [id number] S/N. [email or web address] 03:45 PM Procedure completed at 15:45 [email or web address] 03:45 PM Sign out completed: Radiation Dose 133.84 mGy Fluoro Time: 0.9 Isovue 370 - 200ml contrast 70 ml given by Ishmael Cavazos DO. Complications: NoneCardiac Rehab Consult needed: NoConfirmed administered medications: Yes [email or web address] 03:46 PM Isovue 370 - 200ml,1 Bottle(s) used. [email or web address] 03:46 PM Estimated Blood Loss: less than 20cc [email or web address] 03:46 PM Post ECG NSR [email or web address] 03:46 PM Post Blood Pressure 139/93 [email or web address] 03:47 PM HR=81 bpm, AOUA=847/97 mmhg, SpO2=97.0 %, Resp=23 B/min 03:47 PM 15:47 Post Pulses Bilateral DP 2+ [email or web address] 03:47 PM 15:47 Post Pulses Bilateral PT 1+ [email or web address] 03:47 PM Information taught Cardiac Cath and Angioseal [email or web address] 03:48 PM Vitals capture stopped. 03:48 PM Education needs Procedure, Plan of Care, and Disease Process [email or web address] 03:48 PM Learning barriers :Sedated [email or web address] 03:48 PM Education Methods Verbal [email or web address] 03:48 PM Education evaluation Needs further instruction [email or web address] 03:48 PM Site status No bleeding/hematoma - Rt Groin as reported by Sunshine Adorno RT (R) at 15:48 [email or web address] 03:48 PM Opsite applied [email or web address] 03:48 PM Delay to floor No [email or web address] 03:48 PM Family placed in consult room. [email or web address] 03:48 PM Complications: None [email or web address] 03:48 PM Fluoro Time: 0.9 [email or web address] 03:48 PM Isovue 370 - 200ml contrast 70 ml given by Ishmael Cavazos DO. [email or web address] 03:48 PM Radiation Dose 133.84 mGy [email or web address] 03:50 PM Report given to jose manuel NOVA Pt taken to 3B Room #41. 15:50 [email or web address] 03:52 PM Patient out of room: 15:52 [email or web address] Complications Complication None None Hemodynamics Pressures Site Systolic/A Wave Diastolic/V Wave Mean LV 106 0 2 LV 150 0 2 AO 148 100 120 AO 125 92 107 Post Procedure Information Blood Pressure: 139/93 mmHg Rhythm: NSR Post procedural instructions were given Closure Device Time Device Success/Fail 07/07/2017 3:45:00 PM Angio-Seal VIP Successful Site Checks Time Location Status Staff Sheath In? Note 03:48 PM Rt Groin No bleeding/hematoma Sunshine Adorno RT (R) Pulses Time Site Pre-Procedure Post-Procedure Note 07/07/2017 12:44:00 PM Bilateral DP 2+ 07/07/2017 12:44:00 PM Bilateral PT 1+ 3:47:00 PM Bilateral DP 2+ 3:47:00 PM Bilateral PT 1+ Updated by Gary Adorno RT (R) on 07/07/2017 3:53:07 PM Gary Adorno RT electronically signed on 07/07/2017 3:53:36 PM with status of Final
--- NOTE | 2017-07-07 16:51 | Event Note ---
Date of Encounter: 07/07/17 Time of Encounter: 16:49 - Cardiology Event Note LHC showed no obstructing lesions. No intervention needed. Continue aggressive risk factor modification and better blood pressure control. Healthy diet and exercise. Patient has f/u with Dr. Vuong at [facility].
[2017-07-07] MEDS: 0.9 % Sodium Chloride 1,000 ML IVC SCH (17:02)
[2017-07-08 04:44] LABS: Basophils # 0.1 K/mcL (0.0-0.2); Basophils % 0.7 %; Eosinophils # 0.2 K/mcL (0.0-0.6); Eosinophils % 2.6 %; Hematocrit 37.2 % (35.3-44.9); Hemoglobin 11.8 g/dL (11.5-15.4); Immature Granulocytes % 0.6 % (0-4); Lymphocytes # 2.8 K/mcL (0.6-4.6); Lymphocytes % 33.4 %; Mean Corpuscular HGB Conc 31.7 g/dL (31.6-35.5); Mean Corpuscular Hemoglobin 25.4 pg (28.0-33.3); Mean Corpuscular Volume 80.2 fL (83.0-100.0); Mean Platelet Volume 10.1 fL (9.4-12.4); Monocytes # 0.5 K/mcL (0.0-1.3); Monocytes % 6.3 %; Neutrophils # 4.8 K/mcL (1.6-8.9); Platelet Count 177 K/mcL (140-400); Red Blood Count 4.64 M/mcL (3.82-4.97); Red Cell Distribution Width 14.8 % (11.5-14.5); Segmented Neutrophils % 56.4 %
[2017-07-08 04:52] LABS: Hemoglobin A1C 6.2 %
[2017-07-08 05:00] LABS: Alanine Aminotransferase 46 Units/L (7-52); Albumin 3.9 g/dL (3.5-5.7); Albumin/Globulin Ratio 1.6 (1.1-2.2); Alkaline Phosphatase 70 Units/L (34-104); Aspartate Amino Transferase 27 Units/L (13-39); BUN/Creatinine Ratio 21 (6-26); Bilirubin,Total 0.7 mg/dL (0.3-1.0); Blood Urea Nitrogen 14 mg/dL (6-20); Calcium 9.3 mg/dL (8.6-10.3); Carbon Dioxide 25 mEq/L (23-29); Chloride 110 mEq/L (98-107); Chol/HDL Ratio 4.3 (0-4.9); Cholesterol 172 mg/dL (< 200); Globulin 2.5 g/dL (2.4-3.5); Glucose 95 mg/dL (70-105); HDL Cholesterol 40 mg/dL (40-59); LDL Cholesterol,Calculated 109 mg/dL (0-99); Osmolality,Calculated 294 (280-300); Potassium 3.6 mEq/L (3.5-5.1); Sodium 142 mEq/L (136-145); Total Protein 6.4 g/dL (6.4-8.9); Triglycerides 115 mg/dL (< 150); eGFR For African Americans > 60 (> 60); eGFR For Non-African Americans > 60 (> 60)
[2017-07-08] MEDS: 0.9 % Sodium Chloride 1,000 ML IVC SCH (05:28)
[2017-07-08] MEDS: Pantoprazole 40 MG VIAL IVP SCH (05:28)
[2017-07-08] MEDS: Beclomethasone 80mcg MDI IH SCH (07:57)
--- NOTE | 2017-07-08 08:59 | Discharge Summary ---
- NOTES TO OUTPATIENT PROVIDER Notes to Outpatient Provider: Needs GI referral (she may benefit from an EGD with long history of GERD) Orders not resulted at time of discharge: Pending orders 07/07/17 06:00 ECG 12 lead ECG [ECG] AM 0600 07/08/17 06:18 EKG [ECG 12 lead ECG] [ECG] NOW Date of Encounter: 07/08/17 Time of Encounter: 08:48 - Discharge Diagnosis (1) Chest pain Priority: Primary Status: Resolved Comments: presented with chest pain. No known history of CAD. Serial troponin 0.05, 0.04. EKG without acute ST changes. Received one-time therapeutic dose Lovenox on arrival. TTE 06/2016 with EF 60%, no wall motion abnormalities. Chest CTA negative for pulmonary embolism. 07/07/17 LHC showed angiographically normal coronary arteries. Evaluated by cardiology who suspected elevated troponin possibly secondary to demand ischemia from elevated BP. Chest pain resolved at time of discharge. Follow-up with PCP Qualifiers: Chest pain type: precordial pain Qualified Code(s): R07.2 - Precordial pain (2) Hypertension Priority: Primary Status: Acute Comments: per hx. BP initially uncontrolled with SBP's in 180s. Now well-controlled with resuming home BP medication. Qualifiers: Hypertension type: essential hypertension Qualified Code(s): I10 - Essential (primary) hypertension (3) GERD (gastroesophageal reflux disease) Priority: Primary Status: Acute Comments: per hx. GERD could be leading to chest pain. Discussed inpatient GI consultation versus outpatient follow-up and patient prefers outpatient follow- up. Cont home PPI. Qualifiers: Esophagitis presence: without esophagitis Qualified Code(s): K21.9 - Gastro -esophageal reflux disease without esophagitis Hospital course: Ms. White is a 46 year old female with PMH hypertension and GERD who presented to [facility] on 07/07/2017 with complaints of chest pain. She underwent complete cardiac workup including a negative left heart catheter to rule out ACS. She was discharged home in stable condition with outpatient follow-up. Please see assessment and plan for further details. Discharge discussed with: patient - Time Spent with Patient Total time spent providing and/or coordinating discharge services: Less than 30 minutes - Discharge Medications Home Medications: Albuterol Sulfate [Proair Hfa] 2 puff IH PRN PRN 07/07/17 [History] Amitriptyline [Elavil] 50 mg PO DAILY 07/07/17 [History] Budesonide [Pulmicort Flexhaler 90mcg] 1 puff IH PRN PRN 07/07/17 [History] Buspirone HCl [Buspar] 5 mg PO TID 07/07/17 [History] Dicyclomine [Bentyl] 20 mg PO PRN PRN 07/07/17 [History] Famotidine [Heartburn Prevention] 20 mg PO DAILY 07/07/17 [History] Lisinopril [Zestril] 20 mg PO DAILY 07/07/17 [History] Meloxicam 15 mg PO DAILY 07/07/17 [History] Metoprolol Tartrate [Lopressor] 75 mg PO BID 07/07/17 [History] Omeprazole [PriLOSEC] 40 mg PO DAILY 07/07/17 [History] Pentosan Polysulfate Sodium [Elmiron] 100 mg PO BID 07/07/17 [History] Tizanidine HCl [Zanaflex] 4 mg PO PRN PRN 07/07/17 [History] Trospium Chloride 20 mg PO BID 07/07/17 [History] Allergies/Adverse Reactions: 3 Allergy/AdvReac Type Severity Reaction Status Date / Time adhesive Allergy Rash Verified 09/23/16 15:03 Sulfa (Sulfonamide Allergy Hives Verified 09/23/16 15:03 Antibiotics) Date of admission: 07/07/17 03:42 Primary care physician: Barb Mccurdy MD Consults: 07/07/17 04:58 Consult to Physician [CONS] Routine Consulting Provider: Linda Miner Reason for Consult: chest pain; + troponin; FH sudden Call Completed: No Discharging clinician: Claire Mishra Anticipated date of discharge: 07/08/17 - Constitutional Vitals: Temp Pulse Resp BP Pulse Ox 98.5 F 83 14 112/79 94 07/08/17 07:06 07/08/17 07:06 07/08/17 07:06 07/08/17 07:06 07/08/17 07:06 General appearance: Present: cooperative, A&O X 3, pleasant, no acute distress - Head Head exam: Present: atraumatic, normocephalic - Eye Eye exam: Present: PERRL, conjuntiva pink, sclera anicteric Pupils: Present: PERRL - Neck Neck exam general surgery: Present: supple, trachea midline. Absent: lymphadenopathy - Respiratory Respiratory exam: Present: CTAB. Absent: accessory muscle use, rales, rhonchi, wheezes - Cardiovascular Cardiovascular exam: Present: RRR, +S1, +S2. Absent: diastolic murmur, gallop, rubs, systolic murmur - GI/Abdominal GI/Abdominal exam: Present: normal bowel sounds, soft, no peritoneal signs. Absent: distended, tenderness - Extremities Exam Extremities exam: Present: warm, radial pulses palpable and symmetrical. Absent : calf tenderness, cyanotic, pedal edema - Neurological Exam Neurological exam: Present: CN II-XII intact, oriented X3, no focal deficits. Absent: pronater drift, facial droop, speech deficit - Skin Skin exam: Present: dry, intact - Patient Status Disposition: Home, Self-Care Condition: Good Functional capacity at discharge: independent ambulation Overall status at discharge: patient is back to baseline - Discharge Instructions Instructions: Chest Pain (DC), Gastroesophageal Reflux Disease (DC), Chronic Hypertension (DC) Follow Up With: Barb Mccurdy MD [Primary Care Provider] - (Please call within 1 week of discharge for follow-up appointment) - Diet and Activity Activity: increase activity as tolerated Diet: low fat, low cholesterol
[2017-07-08] MEDS ORDERED: Lisinopril 20 MG TABLET PO SCH (09:00)
[2017-07-08 11:17] VITALS: BP 128/85
--- NOTE | 2017-07-08 17:43 | Electrocardiograph Report ---
[place] [id number] Test Date: 2017-07-08 Pat Name: Lorena White Department: 113 Room: 3B41 Gender: F [employer] Sorter: EMILEE : 1970 Requested By: Ashkan Latham Order Number: [id number] Reading MD: Yvette Huerta Measurements Intervals [place] Rate: 86 P: 15 PA: 162 QRS: -5 QRSD: 85 T: 7 QT: 382 QTc: 425 Interpretive Statements SINUS RHYTHM MODERATE VOLTAGE CRITERIA FOR LVH, CONSIDER NORMAL VARIANT Electronically Signed On 07-08-2017 17:42:24 EST by Yvette Huerta
== END 2017-07-08 11:20 | disposition home or self-care (01) ==
LOC: 3BNU 01:56 → EMEROO 01:56 → 3BNU 04:16
PROVIDERS: ADMIT Pediatrics; ATTEND Registered Nurse